=== PATIENT | female | born 1960 | race Caucasian/White ===

== ENCOUNTER 2017-09-11 14:39 | Emergency (ER) | payer OTHER, BC ==
[~2017-09-11] VITALS: Ht 160 cm; Wt 158.2 kg
[2017-09-11 15:10] LABS: HEMATOCRIT 46.2 % (36.0-46.0); HEMOGLOBIN 15.4 G/DL (11.9-15.5); MCH 32.2 PG (29.0-34.0); MCHC 33.3 G/DL (30.0-36.0); MCV 96.7 FL (83-99); PLATELET COUNT 327 K/uL (156-360); RBC DIS.WIDTH-CV 12.8 % (11.8-14.6); RBC DIS.WIDTH-SD 45.4 % (39-53); RED BLOOD COUNT 4.78 M/uL (3.80-5.20); WHITE BLOOD COUNT 12.2 K/uL (4.1-10.2)
[2017-09-11 15:19] LABS: CHLORIDE 100 mEq/L (99-109); POTASSIUM 4.1 mEq/L (3.7-5.4); SODIUM 139 mEq/L (136-147)
[2017-09-11 15:21] LABS: GLUCOSE 95 mg/dL (70-99)
[2017-09-11 15:24] LABS: CREATININE 0.9 mg/dL (0.6-1.3)
[2017-09-11 15:25] LABS: GFR ESTIMATE (CALCULATED) > 59 mL/min/; UREA NITROGEN (BUN) 13 mg/dL (9-23)
[2017-09-11 15:53] LABS: TROP-I INTERPRETATION NEGATIVE; TROPONIN-I < 0.01 ng/mL (0.0-0.30)
[2017-09-11 17:40] VITALS: BP 122/89
== END 2017-09-11 17:41 | disposition home or self-care (01) ==
LOC: EME 14:39
PROC: 5A2204Z Restoration of Cardiac Rhythm, Single (ICD-10-PCS; principal; 2017-09-11)
DX: I47.1 Supraventricular tachycardia (principal)
CPT/HCPCS: 71045; 80048; 84484; 85027; 93005; J0153; J2250